=== PATIENT | female | born 1970 | race African-American/Black ===

== ENCOUNTER 2019-07-14 01:12 | Emergency (ER) | payer BC ==
[~2019-07-14] VITALS: Ht 167.6 cm; Wt 127.0 kg
[2019-07-14] MEDS ORDERED: KETOROLAC TROMETH 60MG/2ML VIAL IM ONE (05:15)
[2019-07-14 05:17] VITALS: BP 143/64
== END 2019-07-14 04:45 | disposition home or self-care (01) ==
LOC: ER 01:17
DX: R51 Headache (principal); M62.838 Other muscle spasm; Z90.710 Acquired absence of both cervix and uterus
CPT/HCPCS: 96372; 99283; J1885